=== PATIENT | female | born 1990 | race Two or more races ===

== ENCOUNTER 2023-06-02 17:35 | Emergency (ER) | payer MEDICAID ==
[~2023-06-02] VITALS: Ht 167.6 cm; Wt 65.9 kg
[2023-06-02 17:44] VITALS: BP 100/61; PULSE 71; RESP 16; TEMP 98.2
== END 2023-06-02 20:09 | disposition left against medical advice (07) ==
LOC: EMS 17:38
DX: R20.0 Anesthesia of skin (principal); R20.2 Paresthesia of skin; Z53.21 Procedure and treatment not carried out due to patient leaving prior to being seen by health care provider
CPT/HCPCS: 99281; Z7502